=== PATIENT | female | born 1990 | race Hispanic/Latino ===

== ENCOUNTER 2024-12-12 08:25 | Outpatient (CLI) | payer BC | END 2024-12-12 08:26 | disposition home or self-care (01) | LOC: CSHSLEEP 08:25 | PROVIDERS: ATTEND Nurse Practitioner Family | DX: G47.33 Obstructive sleep apnea (adult) (pediatric) (principal); R53.83 Other fatigue; R09.89 Other specified symptoms and signs involving the circulatory and respiratory systems; F32.A Depression, unspecified; F41.9 Anxiety disorder, unspecified; K21.9 Gastro-esophageal reflux disease without esophagitis; G47.00 Insomnia, unspecified; G47.61 Periodic limb movement disorder; G47.31 Primary central sleep apnea | CPT/HCPCS: 95811 ==